=== PATIENT | male | born 1945 | race Caucasian/White ===

== ENCOUNTER 2019-11-30 07:54 | Day surgery (SDC) | payer OTHER, MEDICARE ==
[~2019-11-30 07:54] MED LIST: Glycopyrrolate 0.2 MG/ML SDV ONE; Lactated Ringers 1,000 ML IV SCH; Lidocaine 2% 5 ML SDV ONE; Midazolam 1 MG/ML 2 ML SDV ONE; Propofol 200 MG/20 ML SDV ONE
--- NOTE | 2019-11-30 08:23 | PCM.PREANE ---
Preanesthetic Assessment - Anesthesia/Transfusion/Family Hx Anesthesia History: Prior Anesthesia Without Reaction Other Type of Anesthesia Reaction Comment: Denies any known problem in past, "they pre-treated me for nausea" Family History of Anesthesia Reaction: No Transfusion History: No Prior Transfusion(s) - Review of Systems General: No Symptoms Pulmonary: No Symptoms Cardiovascular: No Symptoms Gastrointestinal: No Symptoms Neurological: No Symptoms Other: Reports: None - Physical Assessment NPO Status Date: 11/29/19 Height: 5 ft 11 in Weight: 99.79 kg ASA Class: 2 Mental Status: Alert & Oriented x3 Airway Class: Mallampati = 2 ROM/Head Extension: Full Lungs: Clear to Auscultation, Normal Respiratory Effort Cardiovascular: Regular Rate, Regular Rhythm - Allergies Allergies/Adverse Reactions: Allergies Allergy/AdvReac Type Severity Reaction Status Date / Time No Known Allergies Allergy Verified 11/24/19 09:37 - Blood Blood Available: No - Anesthesia Plan Pre-Op Medication Ordered: None - Acknowledgements Anesthesia Type Planned: General Anesthesia (tiva) Pt an Appropriate Candidate for the Planned Anesthesia: Yes Alternatives and Risks of Anesthesia Discussed w Pt/Guardian: Yes Pt/Guardian Understands and Agrees with Anesthesia Plan: Yes Additional Comments: PMH: ALUTIIQ, post herpetic neuropathy, smoker PLAN: tiva PreAnesthesia Questionnaire HEENT History: Reports: Hard of Hearing Other HEENT History: wears glasses Cardiovascular History: Reports: Hypertension Respiratory History: Reports: Other (See Below) Other Respiratory History: states he snores but has not had a sleep study Gastrointestinal History: Reports: None Other Genitourinary History: states has slow urinary stream Musculoskeletal History: Reports: Arthritis Other Musculoskeletal History: states has circulatory problems right leg and at times has swelling right foot to knee; states wears compression stockings when has swelling Neurological History: Reports: Other (See Below) Other Neuro History: states has shingles with no open sores but has nerve pain left side Psychiatric History: Reports: None Other Psychiatric History: Denies depression, sounded discouraged particularly with his health "not feeling well" Endocrine/Metabolic History: Reports: None Hematologic History: Reports: None Immunologic History: Reports: None Oncologic (Cancer) History: Reports: None Dermatologic History: Reports: Eczema - Infectious Disease History Infectious Disease History: Reports: None - Past Surgical History Head Surgeries/Procedures: Reports: None GI Surgical History: Reports: Appendectomy, Colonoscopy, Hernia, Inguinal Other GI Surgeries/Procedures: Inguinal Hernia Repair - SUBSTANCE USE Smoking Status *Q: Former Smoker Tobacco Use Within Last Twelve Months: Cigarettes - HOME MEDS Home Medications: Home Meds Acetaminophen [Acetaminophen Extra Strength] 3 tab PO BID 11/24/19 [History] Clycoantioxidant 1 tab PO BID 11/24/19 [History] Gabapentin [Neurontin] 600 mg PO BID 11/24/19 [History] Lidocaine 1 patch TRDERM ASDIRECTED PRN 11/24/19 [History] Mannatech 1 tab PO DAILY 11/24/19 [History] Tamsulosin HCl [Flomax] 0.4 mg PO PCDINNER 11/24/19 [History] lisinopriL [Lisinopril] 20 mg PO BEDTIME 11/24/19 [History] traMADol [Ultram] 50 mg PO DAILY 11/24/19 [History] - CURRENT (IN HOUSE) MEDS Current Meds: Current Medications Lactated Ringer's (Ringers, Lactated) 1,000 mls @ 125 mls/hr IV ASDIRECTED BRADY Discontinued Medications Glycopyrrolate (Robinul) Confirm Administered Dose 0.2 mg .ROUTE .STK-MED ONE Stop: 11/30/19 07:10 Lidocaine (Xylocaine-Mpf 2%) Confirm Administered Dose 5 ml .ROUTE .STK-MED ONE Stop: 11/30/19 07:10 Midazolam HCl (Versed 1 Mg/Ml) Confirm Administered Dose 2 mg .ROUTE .STK-MED ONE Stop: 11/30/19 07:09 Propofol (Diprivan 20 Ml) Confirm Administered Dose 600 mg .ROUTE .STK-MED ONE Stop: 11/30/19 07:08
--- NOTE | 2019-11-30 09:12 | PCM.OPNOTE ---
- General Post-Op/Procedure Note Date of Surgery/Procedure: 11/30/19 Operative Procedure(s): egd w bx. colonoscopy w bx and tattoo Findings: see [id number] Pre Op Diagnosis: gerd and TV polyp hx Post-Op Diagnosis: Same Anesthesia Technique: Moderate Sedation Primary Surgeon: Augustus Hoffman Pathology: egd bx questionable polyp at 125cm when scope withdrawal Complications: None Condition: Good
--- NOTE | 2019-11-30 09:32 | PCM.POSTAN ---
POST ANESTHESIA ASSESSMENT - MENTAL STATUS Mental Status: Alert, Oriented - VITAL SIGNS Vital Signs: Last Vital Signs Temp 97.3 F 11/30/19 08:23 Pulse 89 11/30/19 09:25 Resp 13 11/30/19 09:25 BP 94/65 11/30/19 09:25 Pulse Ox 93 L 11/30/19 09:25 - RESPIRATORY Respiratory Status: Respiratory Rate WNL, Airway Patent, O2 Saturation Stable - CARDIOVASCULAR CV Status: Pulse Rate WNL, Blood Pressure Stable - GASTROINTESTINAL GI Status: No Symptoms - POST OP HYDRATION Hydration Status: Adequate & Stable
--- NOTE | 2019-11-30 09:32 | PCM48HPAN ---
Post Anesthesia Note - EVALUATION WITHIN 48HRS OF ANESTHETIC Vital Signs in Normal Range: Yes Patient Participated in Evaluation: Yes Respiratory Function Stable: Yes Airway Patent: Yes Cardiovascular Function Stable: Yes Hydration Status Stable: Yes Pain Control Satisfactory: Yes Nausea and Vomiting Control Satisfactory: Yes Mental Status Recovered: Yes Vital Signs: Last Vital Signs Temp 97.3 F 11/30/19 08:23 Pulse 89 11/30/19 09:25 Resp 13 11/30/19 09:25 BP 94/65 11/30/19 09:25 Pulse Ox 93 L 11/30/19 09:25
[2019-11-30 09:37] VITALS: BP 111/76; PULSE 85
--- NOTE | 2019-11-30 14:32 | OR ---
SURGEON: Augustus Hoffman MD DATE OF PROCEDURE: 11/30/2019 PREOPERATIVE DIAGNOSIS: History of tubulovillous polyp and gastroesophageal reflux disease. PROCEDURES PERFORMED: Esophagogastroduodenoscopy with biopsy and colonoscopy with biopsy and ink tattoo. DESCRIPTION OF PROCEDURE: EGD: The patient was taken to the endoscopy room, and with the STRATEGY LEAD, Diprivan was administered. A well-lubricated EGD scope was gently inserted through the oropharynx, down the esophagus, passing through the gastroesophageal junction, into the stomach. The mucosa was examined upon the passage. Any etiology will be noted. Once in the stomach, we continued to advance to the distal antrum, passed through the pylorus into the second portion of the duodenum. Again, the mucosa was examined for any abnormality and etiology. The scope was then retrieved back to the stomach and then retroflexed to look at the fundus of the stomach. If a biopsy was indicated, we will biopsy the antrum, body, and gastroesophageal junction. The air will be sucked out while the scope is retrieved to reduce the patient's discomfort. The patient tolerated the procedure well. There were no intraoperative complications. Dr. Hoffman was present through the whole procedure. Prior to surgery, a time-out had been called, the patient identified, procedure identified and antibiotic administered. The patient was taken to the endoscopy room. A time out was called, patient identified, and procedure identified. Diprivan was then administrated. Patient went from awake to sleep, hearing doctor talking or door closing is normal. Perineum inspection and digital examination were then performed. A well- lubricated colonoscope was gently inserted through the rectum, advanced past the rectosigmoid junction, the descending colon, splenic flexure, transverse colon, hepatic flexure, ascending colon, arrived to the cecum. Cecum was identified as dictated in the finding. Then the scope was carefully withdrawn while attention was paid to the mucosal surface for any abnormality. Air will be sucked out during the scope withdrawal. At the rectum, retroflexed to examine any rectal diseases, fistula or hemorrhoids. During mucosal examination, abnormality or polyp was noted; picture taken and biopsy performed. Patient tolerated procedure well. There were no intraoperative complications, and Dr. Hoffman was present throughout the whole procedure. FINDINGS: EGD findings: 1. The patient is easily sedated with STRATEGY LEAD and Diprivan, the patient is soundly snoring. 2. Oropharynx and proximal esophagus are free of disease, stricture, or inflammation. Distal esophagus at GE junction at 40 shows mild salmon- colored change suggestive of acid reflux and possibly of a hiatal hernia too when examined back. Stomach rugae are normal in appearance. Antrum looks fine. Duodenum looks fine. Retroflexed look at the fundus of the stomach, it was kind of difficult, not quite sure why, could not distend the stomach well. The patient may have a mild hiatal hernia. There is no food, bile, or blood observed through the whole study. Biopsy done at antrum and sucked out the gas while scope pulling out. Colonoscopy findings: 1. The patient is easily sedated with STRATEGY LEAD and Diprivan, the patient is soundly snoring. 2. Bowel prep is average with some liquid stool, no semi-formed stool. 3. Colon is rather straightforward. Cecum indicated by ileocecal fold, one-to- one indentation, appendiceal orifice. Light emittance is not observed. ScopeGuide is pointing south. Mucosa examined upon scope pulling out. At 125 cm, there is an area, looked like a 1 cm polyp or more likely just a fold. I looked at it for almost like a minute, could not determine because this kept moving. Determined to be biopsied x2, sent for pathology and tattooed and inked. Continued to examine the mucosa. The patient has mild diverticulosis at left colon. No signs or symptoms of diverticulitis. No other mass, growth, inflammation observed. At the rectum, the patient has some mild internal hemorrhoids, no external hemorrhoids. At the place where he has the TV polyp 10 years ago around the sigmoid colon, there is absolutely no polyp. [place], no polyp. With everything included, the patient may benefit from repeat colonoscopy and as needed basis case by case. Also depends on the pathology of the polyp. If it turned out to be normal colon mucosa, nothing need to be done, or if it is otherwise, the patient may need to have a repeat colonoscopy to take out that questionable polyp. ATUL / SANDRA /[id number] JOSE ANGEL
== END 2019-11-30 10:30 | disposition home or self-care (01) ==
LOC: MW.SDS 07:54
PROVIDERS: ATTEND Surgery
DX: Z12.11 Encounter for screening for malignant neoplasm of colon (principal); D12.6 Benign neoplasm of colon, unspecified; K21.9 Gastro-esophageal reflux disease without esophagitis; K57.30 Diverticulosis of large intestine without perforation or abscess without bleeding; K64.8 Other hemorrhoids; I10 Essential (primary) hypertension; Z86.010 Personal history of colon polyps; Z87.891 Personal history of nicotine dependence; Z79.899 Other long term (current) drug therapy
CPT/HCPCS: 43239; 45380; 45381; J2001; J2250; J2704; J3490; J7120

== ENCOUNTER 2021-03-15 06:54 | Day surgery (SDC) | payer OTHER, MEDICARE ==
[~2021-03-15 06:54] MED LIST changes: -Glycopyrrolate 0.2 MG/ML SDV ONE; -Lidocaine 2% 5 ML SDV ONE; -Midazolam 1 MG/ML 2 ML SDV ONE; -Propofol 200 MG/20 ML SDV ONE
[2021-03-15] MEDS ORDERED: Propofol 200 MG/20 ML SDV ONE ×2 (08:50→10:31)
[2021-03-15] MEDS ORDERED: fentaNYL 100 MCG/2 ML SDV ONE (08:50)
[2021-03-15] MEDS ORDERED: ePHEDrine 50 MG/ML SDV ONE (10:35)
[2021-03-15 11:55] VITALS: BP 148/86; PULSE 71
== END 2021-03-15 12:07 | disposition home or self-care (01) ==
LOC: MW.SDS 06:54
PROVIDERS: ATTEND Surgery
DX: D12.0 Benign neoplasm of cecum (principal); K63.89 Other specified diseases of intestine; K57.30 Diverticulosis of large intestine without perforation or abscess without bleeding; K64.4 Residual hemorrhoidal skin tags; K64.8 Other hemorrhoids; K21.9 Gastro-esophageal reflux disease without esophagitis; E66.9 Obesity, unspecified; Z79.899 Other long term (current) drug therapy; Z90.49 Acquired absence of other specified parts of digestive tract; Z98.890 Other specified postprocedural states; Z87.891 Personal history of nicotine dependence; Z01.812 Encounter for preprocedural laboratory examination; Z20.822 Contact with and (suspected) exposure to COVID-19; Z68.32 Body mass index [BMI] 32.0-32.9, adult
CPT/HCPCS: 45380; 87635; J2704; J3010; J7120; 00811; 99100; U0002